=== PATIENT | male | born 1960 | race African-American/Black ===

== ENCOUNTER 2021-09-16 05:34 | Day surgery (SDC) | payer BC ==
[2021-09-09 14:01] VITALS: BMI 41.3
[2021-09-16] MEDS ORDERED: Lidocaine 1% MPF 2 ML VIAL ONE (06:52)
[2021-09-16] MEDS ORDERED: SUGAMMADEX SODIUM 200 MG/2 ML VIAL ONE (07:10)
[2021-09-16] MEDS ORDERED: Fentanyl 100 MCG/2 ML VIAL ONE (07:47)
[2021-09-16] MEDS ORDERED: PROPOFOL 60 ML ONE (07:47)
[2021-09-16] MEDS ORDERED: Midazolam HCl 2 mg/2 ml Vial ONE (07:47)
[2021-09-16] MEDS ORDERED: Dexamethasone 20 MG/5 ML VIAL ONE (07:48)
[2021-09-16] MEDS ORDERED: EPINEPHrine 1 MG/ML AMP ONE (07:48)
[2021-09-16] MEDS ORDERED: Ondansetron PF 4 MG/2 ML Vial ONE (07:48)
[2021-09-16] MEDS ORDERED: Rocuronium Bromide 10 MG/ML (10ML VIAL) ONE (07:48)
[2021-09-16] MEDS ORDERED: Lidocaine 1% PF 5 ML VIAL ONE (07:48)
[2021-09-16] MEDS ORDERED: Glycopyrrolate 0.2 MG/ML 5 ML SYRINGE ONE (08:02)
== END 2021-09-16 09:25 | disposition home or self-care (01) ==
LOC: CSHSDC 05:34
PROVIDERS: ATTEND Otolaryngology Otolaryngic Allergy
PROC: 0CBT8ZX Excision of Right Vocal Cord, Via Natural or Artificial Opening Endoscopic, Diagnostic (ICD-10-PCS; principal; 2021-09-16)
DX: J38.2 Nodules of vocal cords (principal); Z79.899 Other long term (current) drug therapy; Z79.4 Long term (current) use of insulin; I10 Essential (primary) hypertension; E11.9 Type 2 diabetes mellitus without complications
CPT/HCPCS: 36416; 88305; J0171; J1100; J2250; J2405; J2704; J3010